=== PATIENT | male | born 1985 | race Two or more races ===

== ENCOUNTER 2018-10-10 23:57 | Emergency (ER) | payer MEDICAID ==
[2018-10-11 00:03] VITALS: BP 109/78
[2018-10-11] MEDS ORDERED: IBUPROFEN 600 MG TAB PO ONE (00:13)
[2018-10-11] MEDS ORDERED: LIDOCAINE 4%/MENTHOL 1% PATCH TD ONE (00:13)
--- NOTE | 2018-10-11 00:14 | EDPHY ---
H & P Stated Complaint: low back pain for 1 week Time Seen by Provider: 10/11/18 00:08 HPI/ROS: Chief Complaint: Back pain HPI: 33-year-old male's had back pain for a week. Started when he was lifting. Worse on the left than the right. No numbness or weakness. He is ambulating with some discomfort. No difficulty urinating or having a bowel movement. It is his primary care doctor who gave him prescription for naproxen and for a skeletal more all muscle relaxer but he has run out. He has not taken any medications since then. No fevers or chills. He has been doing some stretching at the recommendation of his primary care physician. Pain is about a 5/10. No history of IV drug use. ROS: 10 systems were reviewed and were negative except those elements noted in the HPI. PMH: Back pain Social History: No smoking, no alcohol, no recreational drug use Family History: non-contributory Physical Exam: Gen: Awake, Alert, No Distress HEENT: Nose: no rhinorrhea Eyes: PERRLA, EOMI Mouth: Moist mucosa Neck: Supple, no JVD Chest: nontender, lungs clear to auscultation Heart: S1, S2 normal, no murmur Abd: Soft, non-tender, no guarding Back: no CVA tenderness, no midline tenderness, patient has some mild left paraspinal tenderness at the lower lumbar spine reproducing presenting complaint. No midline tenderness. Ext: no edema, non-tender Skin: no rash Neuro: CN II-XII intact, Sensation grossly intact, Strength 5/5 in bilateral upper and lower extremities, 2+ deep tendon patellar reflexes. Normal dorsal and plantar flexion. Sensation intact in all dermatomes. - Personal History Current Tetanus/Diphtheria Vaccine: Yes Current Tetanus Diphtheria and Acellular Pertussis (TDAP): Yes - Medical/Surgical History Hx Asthma: No Hx Chronic Respiratory Disease: No Hx Diabetes: No Hx Cardiac Disease: No Hx Renal Disease: No Hx Cirrhosis: No Hx Alcoholism: No Hx HIV/AIDS: No Hx Splenectomy or Spleen Trauma: No - Social History Smoking Status: Light smoker Constitutional: Initial Vital Signs Temperature (C) 36.4 C 10/10/18 23:59 Heart Rate 104 H 10/10/18 23:59 Respiratory Rate 18 10/10/18 23:59 Blood Pressure 109/78 10/10/18 23:59 O2 Sat (%) 98 10/10/18 23:59 O2 Delivery Mode Room Air Allergies/Adverse Reactions: No Known Allergies Allergy (Unverified 09/10/09 20:17) Home Medications: Medication Instructions Recorded None 09/10/09 Medical Decision Making ED Course/Re-evaluation: 33-year-old male with exacerbation of back pain. He has not been taking any anti-inflammatories or other medications. Will give him I customary back instructions, ibuprofen, Lidoderm patch, follow up with primary care. Pain does not have any red flags or risk factors for epidural abscess or acute cauda equina. Completely neurologically intact. Departure - Departure Disposition: Home, Routine, Self-Care Clinical Impression: Back pain Condition: Good Instructions: Back Pain (ED), Lower Back Exercises (ED) Additional Instructions: Take ibuprofen, 600 mg, 3 times a day. You may also take acetaminophen, 1000 mg every 6 hours. You may replace a Lidoderm patch every 24 hr, these are available over-the- counter. Apply ice for 15 minutes of every hour while awake. Make sure to remain active. Did do not lay in bed or sit in a chair for long periods. Avoid heavy lifting or bending at work until cleared by your physician. Please see the attached back exercise instructions. Follow up with your primary care physician in 2-3 days for further evaluation. Referrals: [facility],. [Clinic] - As per Instructions
== END 2018-10-11 00:25 | disposition home or self-care (01) ==
DX: M54.6 Pain in thoracic spine (principal)